=== PATIENT | male | born 1940 | race Hispanic/Latino ===

== ENCOUNTER 2018-04-12 17:43 | Inpatient (IN) | payer OTHER ==
[~2018-04-12] VITALS: Ht 172.7 cm; Wt 83.5 kg
[2018-04-12] MEDS ORDERED: ALBUTEROL SULF 0.083% NEB SOLN 3 ML NEB NEB STA (18:28)
[2018-04-12] MEDS ORDERED: IPRATROPIUM BROMIDE 0.02% 2.5 ML NEB NEB STA (18:28)
[2018-04-12 18:49] LABS: BASOPHILS % 0.2 % (0.0-1.0); HEMATOCRIT 45.5 % (38.2-49.6); HEMOGLOBIN 15.5 g/dL (14.0-18.0); MEAN CORPUSCULAR HEMOGLOBIN 29.4 pg (28-32); MEAN CORPUSCULAR HGB CONC 34.1 g/dL (31-35); MEAN CORPUSCULAR VOLUME 86.2 fL (81-99); MONOCYTES # (AUTO) 0.5 (0.2-0.8); MONOCYTES % 9.9 % (4.4-11.3); NEUTROPHILS # (AUTO) 2.9 (2.1-6.9); NEUTROPHILS % 53.7 % (38.7-80.0); PLATELET COUNT 137 x10e3/uL (140-360); RED BLOOD COUNT 5.28 x10e6/uL (4.3-5.7); RED CELL DISTRIBUTION WIDTH 13.8 % (11.7-14.4)
[2018-04-12 18:55] LABS: INR 0.8; PROTHROMBIN TIME 11.8 seconds (11.9-14.5)
[2018-04-12 18:56] LABS: PARTIAL THROMBOPLASTIN TIME 34.2 seconds (23.8-35.5)
[2018-04-12 19:04] LABS: ALANINE AMINOTRANSFERASE 24 IU/L (0-55); ALBUMIN 3.5 g/dL (3.5-5.0); ALBUMIN/GLOBULIN RATIO 0.9 (0.8-2.0); ALKALINE PHOSPHATASE 99 IU/L (40-150); ANION GAP 14.5 mmol/L (8-16); BLOOD UREA NITROGEN 20 mg/dL (7-26); BUN/CREATININE RATIO 22 (6-25); CARBON DIOXIDE 22 mmol/L (22-29); CHLORIDE 94 mmol/L (98-107); CREATINE KINASE 1143 IU/L (30-200); CREATININE, SERUM 0.91 mg/dL (0.72-1.25); EST GLOMERULAR FILTRATION RATE > 60 ML/MIN (60-); GLUCOSE 130 mg/dL (74-118); POTASSIUM 3.5 mmol/L (3.5-5.1); SODIUM 127 mmol/L (136-145)
--- NOTE | 2018-04-12 19:36 | Diagnostic Imaging Report ---
EXAMINATION: CHEST 2 VIEWS INDICATION: ^ORDER PLACED BY ^[id number] ^1900 ^Y COMPARISON: None FINDINGS: PA and lateral views TUBES and LINES: None. LUNGS: Lungs are well inflated. Diffuse bilateral upper and lower lobes reticular nodular opacities. Mild central pulmonary vascular congestion. PLEURA: No pleural effusion or pneumothorax. HEART AND MEDIASTINUM: Mild enlargement of the cardiac silhouette. Moderate calcifications of the aortic arch. BONES AND SOFT TISSUES: No acute osseous lesion. Soft tissues are unremarkable. UPPER ABDOMEN: No free air under the diaphragm. IMPRESSION: Bilateral upper lobes and lower lobes reticular nodular opacities may represent sequela of prior TB, cannot exclude active infection. No prior images are available for comparison. Mild cardiomegaly with associated central pulmonary vascular congestion. Signed by: Dr. Morena Ruiz M.D. on 04/12/2018 7:33 PM
[2018-04-12] MEDS ORDERED: CEFTRIAXONE SOD 1 GM VIAL IV SCH (20:00)
[2018-04-12] MEDS ORDERED: ALBUTEROL SULF 0.083% NEB SOLN 3 ML NEB NEB ONE (20:12)
[2018-04-12] MEDS ORDERED: METHYLPREDNISOLONE SOD SUCC 125 MG/2ML VIAL IV STA (20:13)
[2018-04-12] MEDS ORDERED: IPRATROPIUM BROMIDE 0.02% 2.5 ML NEB NEB ONE (20:15)
[2018-04-12 20:43] LABS: ABG PCO2 39 mmHg (41-51); ABG PH 7.37 (7.31-7.41)
[2018-04-12 20:44] LABS: ABG HCO3 23 mmol/L (23-28); ABG PO2 65 mmHg (80-105)
[2018-04-12] MEDS ORDERED: ONDANSETRON HCL INJ 2 MG/ML VIAL IV PRN (21:00)
--- NOTE | 2018-04-12 21:01 | NUR ---
PT/FAMILY UPDATED ON POC/ORDERS. ABX INFUSING WITH NO PROBLEM.
[2018-04-12] MEDS: CEFTRIAXONE SOD 1 GM/NS 50 ML 50 ML IV SCH (21:02)
--- OUTSIDE RECORDS SUMMARY | 2018-04-12 21:13 | XMS REPORT ---
Author [facility] Address Unknown Phone Unavailable Care Team Providers Care Wallet Assembler Name Role Phone DORETHAKESHAV Tere DAVIS Unavailable Unavailable Problems This patient has no known problems. Allergies, Adverse Reactions, Alerts This patient has no known allergies or adverse reactions. Medications This patient has no known medications. Results Test Description Test Time Test Comments Text Results Atomic Results Result Comments CHEST 2 VIEWS 2018-04-12 19:31:00 [place] [id number] Patient Name: LIBBY ALBA MR #: [id number] : 1940 Age/Sex: 77/M Req #: [id number] Adm Physician: Ordered by: JULEE ROBLES NP Report #: [id number] Location: ER Room/Bed: Procedure: [id number] DX/CHEST 2 VIEWS Exam Date: 04/12/18 Exam Time: 1899 REPORT STATUS: Signed EXAMINATION: CHEST 2 VIEWS INDICATION: ORDER PLACED BY [id number] 1899 Y COMPARISON: None FINDINGS: PA and lateral views TUBES and LINES: None. LUNGS: Lungs are well inflated. Diffuse bilateral upper and lower lobes reticular nodular opacities. Mild central pulmonary vascular congestion. PLEURA: No pleural effusion or pneumothorax. HEART AND MEDIASTINUM: Mild enlargement of the cardiac silhouette. Moderate calcifications of the aortic arch. BONES AND SOFT TISSUES: No acute osseous lesion. Soft tissues are unremarkable. UPPER ABDOMEN: No free air under the diaphragm. IMPRESSION: Bilateral upper lobes and lower lobes reticular nodular opacities may represent sequela of prior TB, cannot exclude active infection. No prior images are available for comparison. Mild cardiomegaly with associated central pulmonary vascular congestion. Signed by: Dr. Rubi Mon M.D. on 04/12/2018 7:33 PM Dictated By: RUBI MON MD 32 Transcribed By: KWAME on 04/12/181932 COPY TO: JULEE ROBLES NP
[2018-04-12] MEDS: METHYLPREDNISOLONE SOD SUCC 125 MG/2ML VIAL IV SCH (21:18)
[2018-04-12 21:27] LABS: BAND NEUTROPHILS % (MANUAL) 2 %; LYMPHOCYTES % (MANUAL) 35 % (19-48); MONOCYTES % (MANUAL) 13 % (3.4-9.0); NEUTROPHILS % (MANUAL) 47 % (40-74)
[2018-04-12 21:28] LABS: PLATELET ESTIMATE SLIGHTLY DECREASED; PLATELET MORPHOLOGY COMMENT NORMAL; RBC MORPHOLOGY COMMENT NORMAL
[2018-04-12] MEDS: AZITHROMYCIN 500MG/NS 250 ML 250 ML IV SCH (21:37)
--- NOTE | 2018-04-12 22:33 | NUR ---
TX'D TO A HOSPITAL BED
[2018-04-12] MEDS: ALBUTEROL SULF 0.083% NEB SOLN 3 ML NEB NEB SCH (23:00)
[2018-04-12] MEDS: IPRATROPIUM BROMIDE 0.02% 2.5 ML NEB NEB SCH (23:00)
--- NOTE | 2018-04-12 23:40 | NUR ---
REPORTED OFF TO LUCHO CHRISTOPHER RN FOR CONTINUITY OF CARE.
[2018-04-13 01:07] LABS: CLARITY,URINE CLEAR (CLEAR); COLOR,URINE YELLOW (YELLOW)
[2018-04-13 01:08] LABS: BILIRUBIN,URINE NEGATIVE (NEGATIVE); KETONES,URINE NEGATIVE (NEGATIVE); LEUKOCYTE ESTERASE ,URINE NEGATIVE (NEGATIVE); NITRITE,URINE NEGATIVE (NEGATIVE); PROTEIN,URINE DIPSTICK 2+ (NEGATIVE); URINE UROBILINOGEN 0.2 mg/dL (0.2 - 1)
[2018-04-13 01:09] LABS: BACTERIA,URINE RARE /HPF; EPITHELIAL CELLS,URINE FEW /LPF; RBC,URINE 0-5 /HPF (0-5); WBC,URINE (MAN) 0-5 /HPF (0-5)
[2018-04-13] MEDS ORDERED: SODIUM CHLORIDE 0.9% 500ML 500 ML ONE (01:12)
[2018-04-13] MEDS ORDERED: SODIUM CHLORIDE 0.9% 500ML 500 ML IV STA (01:27)
[2018-04-13] MEDS: SODIUM CHLORIDE 0.9% 1000ML 1,000 ML IV SCH ×2 (02:21→08:28)
[2018-04-13] MEDS: ALBUTEROL SULF 0.083% NEB SOLN 3 ML NEB NEB SCH ×6 (02:30→23:50)
[2018-04-13] MEDS: IPRATROPIUM BROMIDE 0.02% 2.5 ML NEB NEB SCH ×7 (02:30→23:50)
[2018-04-13 02:48] LABS: CREATINE KINASE MB 5.8 ng/mL (0-5.0)
[2018-04-13 04:48] LABS: BASOPHILS % 0.6 % (0.0-1.0); LYMPHOCYTES % 32.3 % (18.0-39.1); MEAN CORPUSCULAR HEMOGLOBIN 29.3 pg (28-32); MEAN CORPUSCULAR HGB CONC 33.3 g/dL (31-35); MEAN CORPUSCULAR VOLUME 87.9 fL (81-99); MONOCYTES # (AUTO) 0.1 (0.2-0.8); MONOCYTES % 2.5 % (4.4-11.3); NEUTROPHILS % 64.3 % (38.7-80.0); PLATELET COUNT 144 x10e3/uL (140-360); RED BLOOD COUNT 5.12 x10e6/uL (4.3-5.7); RED CELL DISTRIBUTION WIDTH 13.8 % (11.7-14.4)
[2018-04-13 05:04] LABS: ALANINE AMINOTRANSFERASE 24 IU/L (0-55); ALBUMIN 3.2 g/dL (3.5-5.0); ALBUMIN/GLOBULIN RATIO 0.8 (0.8-2.0); ALKALINE PHOSPHATASE 92 IU/L (40-150); ANION GAP 15.5 mmol/L (8-16); BLOOD UREA NITROGEN 19 mg/dL (7-26); BUN/CREATININE RATIO 21 (6-25); CALCIUM 8.8 mg/dL (8.4-10.2); CARBON DIOXIDE 22 mmol/L (22-29); CHLORIDE 99 mmol/L (98-107); CHOL/HDL RATIO 2.5 (3.9-4.7); CHOLESTEROL 125 MD/DL (0-199); CREATININE, SERUM 0.89 mg/dL (0.72-1.25); EST GLOMERULAR FILTRATION RATE > 60 ML/MIN (60-); GLUCOSE 174 mg/dL (74-118); HDL CHOLESTEROL 50 MG/DL (40-60); LDL CHOLESTEROL 61 MG/DL (60-130); POTASSIUM 3.5 mmol/L (3.5-5.1); SODIUM 133 mmol/L (136-145); TRIGLYCERIDES 70 MG/DL (0-149)
[2018-04-13] MEDS: METHYLPREDNISOLONE SOD SUCC 125 MG/2ML VIAL IV SCH ×3 (05:47→21:43)
[2018-04-13 06:11] LABS: BAND NEUTROPHILS % (MANUAL) 3 %; LYMPHOCYTES % (MANUAL) 27 % (19-48); MONOCYTES % (MANUAL) 3 % (3.4-9.0); NEUTROPHILS % (MANUAL) 67 % (40-74); PLATELET ESTIMATE ADEQUATE; PLATELET MORPHOLOGY COMMENT NORMAL; RBC MORPHOLOGY COMMENT NORMAL
[2018-04-13 06:42] LABS: CREATINE KINASE MB 6.1 ng/mL (0-5.0)
--- NOTE | 2018-04-13 06:59 | NUR ---
RECEIVED REPORT FROM KSENIA YEPEZ DESKTOP SPECIALIST NURSE.
--- NOTE | 2018-04-13 08:30 | NUR ---
MEAL GIVEN TO PT.
[2018-04-13] MEDS: ASPIRIN 81 MG ENTERIC COATED PO SCH (09:27)
[2018-04-13] MEDS: FAMOTIDINE 20 MG/2 ML VIAL IV SCH ×2 (09:29→21:03)
[2018-04-13] MEDS: CEFTRIAXONE SOD 1 GM/NS 50 ML 50 ML IV SCH ×2 (09:39→21:03)
[2018-04-13] MEDS: AZITHROMYCIN 500MG/NS 250 ML 250 ML IV SCH (10:45)
[2018-04-13] MEDS ORDERED: HYDRALAZINE HCL 20 MG/ML VIAL IV NR (11:00)
[2018-04-13] MEDS ORDERED: HYDRALAZINE HCL 20 MG/ML VIAL ONE (11:05)
[2018-04-13 11:39] LABS: CREATINE KINASE MB 5.8 ng/mL (0-5.0)
[2018-04-13 12:00] LABS: BILIRUBIN,DIRECT 0.2 mg/dL (0.0-0.5)
--- NOTE | 2018-04-13 12:15 | NUR ---
LUNCH TRAY GIVEN TO PT.
--- NOTE | 2018-04-13 12:27 | History and Physical ---
CHIEF COMPLAINT: Shortness of breath. HISTORY OF PRESENT ILLNESS: Mr. Jackson is a 77-year-old male who presented to the emergency room with worsening shortness of breath, wheezing, and cough. His usual care is in [place]. He has been a smoker for 50+ years and he smokes a pack a day for almost 50+ years. He denies any chest pain. He reports that he has history of hypertension. He does not have any heart disease. He takes losartan at home. He denies any complaints of chest pain, nausea, or vomiting. REVIEW OF SYSTEMS GENERAL: Denies any fever or chills. HEAD: Denies any trauma. ENT: Denies any earaches. CVS: Denies any chest pain. RESPIRATORY: Shortness of breath. The rest of the review of systems are negative except as in HPI. PAST MEDICAL HISTORY: Hypertension and hyperlipidemia. PAST SURGICAL HISTORY: Hernia repair. FAMILY AND SOCIAL HISTORY: Smoker for 50+ years. All his care is in [place]. PHYSICAL EXAMINATION VITAL SIGNS: Temperature 97.5, pulse of 70, blood pressure 162/59, respiratory rate of 18. HEENT: Head atraumatic, normocephalic. NECK: Supple. CHEST: Wheezing bilaterally. HEART: S1, S2 audible. ABDOMEN: Soft, nontender, nondistended. EXTREMITIES: No clubbing, cyanosis. Trace edema. NEUROLOGIC: Awake and alert. LABS: White count of 3000, hemoglobin 15.0, and platelets 144. Chemistry; sodium 133, potassium 3.5, chloride 99, BUN 19, creatinine 0.89. Troponin has been negative. CK-MB was 6.10. Alk phos is 964 and AST 42. BNP 81.5. Chest x-ray showing increased bronchovascular marking, possible reticulonodular opacities. ASSESSMENT: Mr. Jackson is a 77-year-old male who presented with worsening shortness of breath, wheezing, and cough. He has a history of hypertension, smoker for 50+ years. CURRENT PROBLEMS 1. Acute exacerbation of chronic obstructive pulmonary disease versus pneumonia. 2. Abnormal CK-MB; however, the troponin is negative, unsure if it is the muscular injury versus cardiac. 3. Abnormal alkaline phosphatase. 4. History of hypertension, currently uncontrolled. PLAN 1. I will start the patient on Solu-Medrol nebulizer treatment as ordered. 2. Agree with IV antibiotics, ceftriaxone and azithromycin. 3. We will do a CT of the chest without contrast to further evaluate the abnormal chest x-ray. 4. Ultrasound of the right upper quadrant as patient's alkaline phosphatase is evaluated. 5. Abnormal CK-MB and CPK. We will follow closely. If this continues to go up, then consider cardiology evaluation. 6. Uncontrolled hypertension. Resume the home medications. 7. Check labs in a.m. Discussed with patient's at bedside in detail. Job#: [id number] ADIEL
--- NOTE | 2018-04-13 12:47 | Diagnostic Imaging Report ---
EXAM: CT Chest WITHOUT contrast INDICATION: ^ABNORMAL CXR stated findings suggestive of sequela of prior TB. COMPARISON: Chest x-ray 04/12/2018. TECHNIQUE: Chest was scanned utilizing a multidetector helical scanner from the lung apex through the level of the adrenal glands without administration of IV contrast. Absence of intravenous contrast decreases sensitivity for detection of lymphadenopathy and vascular pathology. Coronal and sagittal reformations were obtained. Routine protocol was performed. IV CONTRAST: None COMPLICATIONS: None RADIATION DOSE: Total DLP: 544.13 mGy*cm Estimated effective dose: (DLP x 0.014 x size factor) mSv CTDIvol has been reviewed. It is below the limits set by the Radiation Protocol Committee (RPC). FINDINGS: LINES/ TUBES: None. LUNGS AND AIRWAYS: Bilateral pleural parenchymal scarring predominantly in the upper lobes. There are cavitary lesions predominantly in the upper lobes. Scattered nodular densities in throughout bilateral lungs predominantly in the upper lobes. For example, 1.1 cm in the left upper lobe (series 3, image 51). 0.9 cm nodule in the right middle lobe (series 3, image 80). Mild bronchial wall thickening. PLEURA: The pleural spaces are clear. HEART AND MEDIASTINUM: The thyroid gland is normal. Lymph nodes are measured on series 2. * 1.1 cm right supraclavicular lymph node (image 9). * 1.2 cm low paratracheal lymph node (image 34). * 1.0 cm prevascular lymph node (image 46). * 1.6 cm subcarinal lymph node (image 51). The heart is normal in size. There is no pericardial effusion. There are significant atherosclerotic calcifications in the aorta and coronary arteries. Main pulmonary artery measures 3.6 cm and ascending aorta measures 4.0 cm. UPPER ABDOMEN: Unremarkable. BONES: The visualized bony thorax is within normal limits. SOFT TISSUES: Unremarkable. IMPRESSION: Findings consistent with old granulomatous disease especially prior TB. There is however still significant nodular component without significant calcifications. This raises concern for residual active disease. Signed by: Dr. Sohail Anthony M.D. on 04/13/2018 12:43 PM
[2018-04-13] MEDS: LEVALBUTEROL HCL SOLN NEBU 1.25 MG/3 ML NEB INH SCH ×2 (13:00→19:20)
[2018-04-13] MEDS: LOSARTAN POTASSIUM 100 MG TAB PO SCH (13:28)
[2018-04-13] MEDS ORDERED: HYDRALAZINE HCL 20 MG/ML VIAL IV ONE (17:30)
--- NOTE | 2018-04-13 19:13 | NUR ---
REPORT GIVEN TO KSENIA YEPEZ CANCER CENTER DIRECTOR NURSE.
[2018-04-13] MEDS: HYDRALAZINE HCL 25 MG TAB PO SCH ×2 (19:15→23:22)
[2018-04-14] MEDS: HYDRALAZINE HCL 20 MG/ML VIAL IV PRN ×2 (00:12→15:40)
[2018-04-14] MEDS: IPRATROPIUM BROMIDE 0.02% 2.5 ML NEB NEB SCH ×6 (00:15→18:55)
[2018-04-14] MEDS: ALBUTEROL SULF 0.083% NEB SOLN 3 ML NEB NEB SCH ×6 (00:15→18:55)
[2018-04-14] MEDS ORDERED: HYDROCODONE/CHLORPHENIRAMINE 5 ML LIQCR PO ONE (01:00)
[2018-04-14] MEDS: LEVALBUTEROL HCL SOLN NEBU 1.25 MG/3 ML NEB INH SCH ×4 (01:00→19:00)
[2018-04-14] MEDS ORDERED: METHYLPREDNISOLONE SOD SUCC 40 MG/ML VIAL ONE (06:00)
[2018-04-14] MEDS: METHYLPREDNISOLONE SOD SUCC 125 MG/2ML VIAL IV SCH (06:03)
[2018-04-14] MEDS: HYDRALAZINE HCL 25 MG TAB PO SCH ×3 (06:05→18:24)
[2018-04-14 06:42] LABS: BASOPHILS % 0.2 % (0.0-1.0); HEMATOCRIT 41.3 % (38.2-49.6); LYMPHOCYTES % 11.6 % (18.0-39.1); MEAN CORPUSCULAR HGB CONC 33.9 g/dL (31-35); MEAN CORPUSCULAR VOLUME 85.7 fL (81-99); MONOCYTES # (AUTO) 0.2 (0.2-0.8); MONOCYTES % 2.7 % (4.4-11.3); NEUTROPHILS # (AUTO) 7.5 (2.1-6.9); NEUTROPHILS % 85.2 % (38.7-80.0); PLATELET COUNT 161 x10e3/uL (140-360); RED BLOOD COUNT 4.82 x10e6/uL (4.3-5.7); RED CELL DISTRIBUTION WIDTH 13.8 % (11.7-14.4)
[2018-04-14 07:02] LABS: ANION GAP 13.3 mmol/L (8-16); BLOOD UREA NITROGEN 16 mg/dL (7-26); BUN/CREATININE RATIO 21 (6-25); CALCIUM 8.8 mg/dL (8.4-10.2); CARBON DIOXIDE 21 mmol/L (22-29); CHLORIDE 103 mmol/L (98-107); CREATININE, SERUM 0.78 mg/dL (0.72-1.25); EST GLOMERULAR FILTRATION RATE > 60 ML/MIN (60-); GLUCOSE 317 mg/dL (74-118); POTASSIUM 3.3 mmol/L (3.5-5.1); SODIUM 134 mmol/L (136-145)
[2018-04-14 07:38] LABS: BAND NEUTROPHILS % (MANUAL) 1 %; LYMPHOCYTES % (MANUAL) 11 % (19-48); MONOCYTES % (MANUAL) 1 % (3.4-9.0); NEUTROPHILS % (MANUAL) 87 % (40-74)
[2018-04-14 07:39] LABS: PLATELET ESTIMATE ADEQUATE; PLATELET MORPHOLOGY COMMENT NORMAL; RBC MORPHOLOGY COMMENT NORMAL
--- NOTE | 2018-04-14 07:43 | Progress Note ---
DATE: April 14, 2018 CARDIOLOGY PROGRESS NOTE SUBJECTIVE: No major events overnight. OBJECTIVE VITAL SIGNS: Temperature afebrile, pulse 71, respiratory rate 17, blood pressure 133/52, satting 95% on nasal cannula. GENERAL: Elderly man, no acute distress. CARDIOVASCULAR: Difficult exam due to barrel chest. Regular rate and rhythm. No murmurs, rubs, or gallops. Palpable carotid pulses. Palpable radial pulses. No jugular venous distention. LUNGS: Lungs with poor air movement. Mild expiratory wheezing. ABDOMEN: Soft, nontender, nondistended. NEURO AND PSYCH: Alert and oriented to person, place, and time. Normal affect. INPATIENT MEDICATIONS: Reviewed. LABORATORY DATA: Reviewed. IMAGING DATA: Reviewed. Chest CT shows old granulomatous disease; however, there are a few nodules that are concerning for active infection. No pulmonary edema. No other concerning cardiovascular findings. Telemetry data reviewed, shows sinus rhythm. ASSESSMENT AND PLAN 1. Abnormal cardiac biomarkers. 2. Chronic obstructive pulmonary disease exacerbation. 3. Hypertension. PLAN: Continue current cardiovascular medications. Increase hydralazine to 50 mg q.6 hours for better blood pressure control. Pulmonary issues per primary team. Echocardiogram is pending. Thank you for this consult. We will continue to follow. Job#: [id number] JULIUS
[2018-04-14] MEDS: FAMOTIDINE 20 MG/2 ML VIAL IV SCH ×2 (09:23→21:40)
[2018-04-14] MEDS: CEFTRIAXONE SOD 1 GM/NS 50 ML 50 ML IV SCH ×2 (09:23→21:40)
[2018-04-14] MEDS: AMLODIPINE BESYLATE 10 MG TAB PO SCH (09:26)
[2018-04-14] MEDS: LOSARTAN POTASSIUM 100 MG TAB PO SCH (09:26)
[2018-04-14] MEDS: ASPIRIN 81 MG ENTERIC COATED PO SCH (09:26)
[2018-04-14] MEDS: AZITHROMYCIN 500MG/NS 250 ML 250 ML IV SCH (11:13)
[2018-04-14] MEDS: METHYLPREDNISOLONE SOD SUCC 40 MG/ML VIAL IV SCH ×2 (14:14→21:40)
--- NOTE | 2018-04-14 19:29 | NUR ---
REPORT GIVEN TO KSENIA CISNEROSRETAIL TIRE SALES MANAGERCOMPENSATION CONSULTING MANAGER NURSE.
[2018-04-15] MEDS: HYDRALAZINE HCL 25 MG TAB PO SCH ×5 (00:14→21:06)
[2018-04-15] MEDS: LEVALBUTEROL HCL SOLN NEBU 1.25 MG/3 ML NEB INH SCH ×3 (01:00→10:10)
[2018-04-15] MEDS: ALBUTEROL SULF 0.083% NEB SOLN 3 ML NEB NEB SCH ×2 (03:00→07:00)
[2018-04-15] MEDS: IPRATROPIUM BROMIDE 0.02% 2.5 ML NEB NEB SCH ×4 (03:00→14:19)
[2018-04-15] MEDS: METHYLPREDNISOLONE SOD SUCC 40 MG/ML VIAL IV SCH ×2 (06:11→16:29)
--- NOTE | 2018-04-15 07:00 | NUR ---
PATIENT RECEIVING BREATHING TX
--- NOTE | 2018-04-15 07:01 | NUR ---
REPORT TO GINETTE LU
[2018-04-15] MEDS: HYDRALAZINE HCL 20 MG/ML VIAL IV PRN ×2 (07:28→18:29)
[2018-04-15] MEDS: FAMOTIDINE 20 MG/2 ML VIAL IV SCH (08:39)
[2018-04-15] MEDS: CEFTRIAXONE SOD 1 GM/NS 50 ML 50 ML IV SCH ×2 (08:39→20:32)
[2018-04-15] MEDS: AMLODIPINE BESYLATE 10 MG TAB PO SCH (08:39)
[2018-04-15] MEDS: LOSARTAN POTASSIUM 100 MG TAB PO SCH (08:39)
[2018-04-15] MEDS: ASPIRIN 81 MG ENTERIC COATED PO SCH (08:39)
[2018-04-15] MEDS: AZITHROMYCIN 500MG/NS 250 ML 250 ML IV SCH (09:19)
[2018-04-15] MEDS ORDERED: DEXTROSE 50% SYRINGE 50 ML IV PRN (09:30)
--- NOTE | 2018-04-15 09:31 | NUR ---
DR. CABEZAS IN ER. SPEAKING WITH FAMILY REGARDING BRONCOSCOPY AND NEEDING SPUTUM SAMPLE ALSO FAMILY DOES NOT KNOW NAME OF MEDS HE IS ON. HE TAKES SOMETHING FOR PAIN AND BP
--- NOTE | 2018-04-15 10:25 | Diagnostic Imaging Report ---
PROCEDURE:LIMITED ABDOMINAL ULTRASOUND COMPARISON:None. INDICATIONS:ABNORMAL LFTS FINDINGS: Liver: Measures 12.2 cm. Normal hepatic parenchymal echogenicity. No focal mass. Main portal vein: Measures 0.8 cm with normal hepatopetal flow. Gallbladder: Multiple shadowing stones within the gallbladder. No wall thickening. Common Bile Duct: Measures 0.2 cm with no echogenic filling defect. Sonographic Gay's sign: Negative Right kidney: Measures 10.7 x 5.2 x 6.0 cm. No solid or cystic mass, echogenic calculi, or hydronephrosis. Normal parenchymal echogenicity. Pancreas: Obscured by gas Inferior vena cava: Patent Aorta: Proximal portion and is normal in size Ascites: None. CONCLUSION: Multiple shadowing gallstones. Emory Gleason D.O. Dictated by: Emory Gleason D.O. on 04/15/2018 at 10:26 Electronically approved by: Emory Gleason D.O. on 04/15/2018 at 10:35
--- NOTE | 2018-04-15 11:49 | NUR ---
PATIENT REFUSING BROCHOSCOPY. DR. CABEZAS NOTIFIED VIA ANSWERING SERVICE
--- NOTE | 2018-04-15 12:15 | NUR ---
PT HAS ALREADY EATEN LUNCH. INFORMED FAMILY TO NOTIFY RN BEFORE PATIENT EATS NEXT MEAL FSBS CHECK IS NEEDED. FAMILY AND PATIENT VERBALIZED UNDERSTANDING.
--- NOTE | 2018-04-15 12:22 | NUR ---
REPORT TO ARELY
[2018-04-15] MEDS: AZITHROMYCIN 250 MG TAB PO SCH (12:54)
--- NOTE | 2018-04-15 12:56 | NUR ---
CHLORTHALIDONE NOT IN [place], PHARMACY NOTIFIED. THEY WILL BRING TO ED.
[2018-04-15] MEDS: CHLORTHALIDONE 25 MG TAB PO SCH (13:29)
--- NOTE | 2018-04-15 14:53 | Progress Note ---
DATE: April 15, 2018 CARDIOLOGY PROGRESS NOTE SUBJECTIVE: Patient feels better. Denies any chest pain or chest pressure. Improvement in shortness of breath. OBJECTIVE VITAL SIGNS: The patient is afebrile, heart rate is 70, respirations are 20, blood pressure is 166/91, oxygen saturation is 99% on room air. GENERAL: A well-appearing elderly man seated at bedside in no apparent distress. CARDIOVASCULAR: Regular rate and rhythm. Mild systolic murmur heard best at the left lower sternal order. LUNGS: Mild expiratory wheezing. ABDOMEN: Soft, nontender and nondistended. CARDIOVASCULAR MEDICATIONS: Reviewed. LABORATORY DATA: Reviewed. Creatinine kinase is 827 down from 1143. CK-MB is 5.8. Troponin I is 0.022, 0.014. Creatinine is 0.78. Potassium is 3.3. IMPRESSION 1. Abnormal cardiac biomarkers. 2. Chronic obstructive pulmonary disease. 3. Granulomatous disease. 4. Hypertension. RECOMMENDATIONS: Continue current cardiovascular medications. Increase hydralazine to 100 t.i.d. for better blood pressure control. Cardiac enzymes not consistent with acute coronary syndrome, and the patient has no chest discomfort or chest pain. Troponins remain negative. Echocardiogram pending. Job#: [id number] KEISHA
[2018-04-15] MEDS: INSULIN LISPRO 100 UNIT/1 ML 3ML VIAL SQ SCH ×3 (16:28→21:00)
--- NOTE | 2018-04-15 17:55 | NUR ---
DINNER TRAY HAS NOT ARRIVED. RECHECKED FSBS, RESULT 218, NO SYMPTOMS
--- NOTE | 2018-04-15 19:11 | NUR ---
REPORT AND PATIENT CARE ENDORSED TO IVETTE MCCORMACK
--- NOTE | 2018-04-15 20:38 | NUR ---
REPORT CALLED TO JOCELIN RN, ROOM 201.
[2018-04-15 21:00] VITALS: BP 159/75
[2018-04-15] MEDS: TERAZOSIN HCL 1 MG CAP PO SCH (21:06)
[2018-04-15 22:00] VITALS: BP 159/75
[2018-04-16] VITALS: BP 141/65
[2018-04-16] MEDS ORDERED: LOSARTAN POTASS25 MG PO (00:24)
[2018-04-16 04:00] VITALS: BP 167/75
--- NOTE | 2018-04-16 07:40 | NUR ---
patient endorsed to next shift for continuity of care.
[2018-04-16] MEDS: INSULIN LISPRO 100 UNIT/1 ML 3ML VIAL SQ SCH ×4 (08:00→21:35)
[2018-04-16 08:14] VITALS: BP 199/86
[2018-04-16] MEDS: HYDRALAZINE HCL 25 MG TAB PO SCH ×3 (09:29→21:27)
[2018-04-16] MEDS: CEFTRIAXONE SOD 1 GM/NS 50 ML 50 ML IV SCH ×2 (09:29→21:27)
[2018-04-16] MEDS: METHYLPREDNISOLONE SOD SUCC 40 MG/ML VIAL IV SCH (09:29)
[2018-04-16] MEDS: ASPIRIN 81 MG ENTERIC COATED PO SCH (09:30)
[2018-04-16] MEDS: LOSARTAN POTASSIUM 100 MG TAB PO SCH (09:30)
[2018-04-16] MEDS: AMLODIPINE BESYLATE 10 MG TAB PO SCH (09:30)
[2018-04-16] MEDS: CHLORTHALIDONE 25 MG TAB PO SCH (09:30)
[2018-04-16] MEDS: AZITHROMYCIN 250 MG TAB PO SCH (09:30)
[2018-04-16 11:59] VITALS: BP 197/84
[2018-04-16] MEDS: HYDRALAZINE HCL 20 MG/ML VIAL IV PRN (12:29)
--- NOTE | 2018-04-16 12:29 | NUR ---
Seating Captain to bedside to discuss plan of care with patient/family. CM/SW role and care transitions discussed. Anticipated discharge plan discussed along with duration of care. CM/SW discussed patients right to make decisions in care. CM/SW work hours given. Patient lives: with and son King Jackson Admit/Transfer: thru ED, from home POA/Emergency contact: daughter Patricia Alex [phone] Current/Previous Home Health: none PCP/Follow-up Care: roque Current/Previous DME: none; pt reports he is independent Other Services: none Employment Status: unemployed Areas of Concerns: n/a Referral Needs: n/a Education Needs: medical management IMM/LUCAS given and signed (if applicable): n/a Goal for discharge: home, son will provide transportation CM/SW left business card at the bedside with contact information. Name and number was also written on the patients whiteboard. Patient verbalized understanding of discussion. CM will follow-up with ongoing discharge and transition of care needs.
[2018-04-16] MEDS ORDERED: DOXAZOSIN MESYLATE 2 MG TAB PO SCH (14:00)
--- NOTE | 2018-04-16 14:15 | Progress Note ---
DATE: CARDIOLOGY PROGRESS NOTE SUBJECTIVE: Patient feels better and denies any chest pain. OBJECTIVE: VITAL SIGNS: Temperature is 96.5, heart rate is 63, respirations are 16, blood pressure is 197/84, oxygen saturation 96% on room air. GENERAL: He is an elderly man seated at bedside. HEAD: Normocephalic, atraumatic. LUNGS: Diminished breath sounds with scattered wheezes. CARDIOVASCULAR: Regular rate and rhythm. ABDOMEN: Soft, nontender. EXTREMITIES: No edema. Cardiovascular medications reviewed. LABORATORY DATA: Reviewed. Telemetry monitoring revealed normal sinus rhythm. IMPRESSION: 1. Hypertension. 2. Abnormal cardiac biomarkers. 3. Chronic obstructive pulmonary disease. 4. Granulomatous disease. PLAN: Continue all current cardiovascular medications. Will start Cardura at 4 mg for better blood pressure control. Echocardiogram showed normal left ventricular systolic function. There is no acute evidence of acute coronary syndrome, and his troponin remains within normal limits. Continue all other pulmonary treatment per primary team. Job#: [id number] FRANDY
[2018-04-16] MEDS ORDERED: POTASSIUM CHLORIDE 20 MEQ TAB CR PO PRN (15:30)
[2018-04-16] MEDS: NIFEDIPINE CR 30 MG TAB PO SCH ×2 (15:35→21:28)
[2018-04-16 16:08] VITALS: BP 173/76
--- NOTE | 2018-04-16 19:15 | NUR ---
PATIENT RECEIVED. PATIENT RESTING IN BED, AA0X3. RESP EVEN AND UNLABORED. NO ACUTE DISTRESS NOTED AT THIS TIME. CALL LIGHT WITHIN REACH. INSTRUCT TO CALL FOR ASSISTANCE. BED LOW/LOCKED. CONTINUE TO MONITOR CLOSELY
[2018-04-16 20:00] VITALS: BP_SYST 151; BP_SYST 159; BP_SYST 179; BP_DIAS 70; BP_DIAS 74; BP_DIAS 79
[2018-04-16] MEDS: TERAZOSIN HCL 1 MG CAP PO SCH (21:28)
[2018-04-16] MEDS ORDERED: SODIUM CHLORIDE 0.9% 250ML 250 ML ONE (21:40)
[2018-04-16] MEDS: IPRATROPIUM BROMIDE 0.02% 2.5 ML NEB NEB SCH (23:15)
[2018-04-16] MEDS: LEVALBUTEROL HCL SOLN NEBU 1.25 MG/3 ML NEB INH SCH (23:15)
[2018-04-17] VITALS (8 sets, daily range): BP systolic 120–154; BP diastolic 57–74
[2018-04-17 04:52] LABS: LYMPHOCYTES # (AUTO) 2.4 (1.0-3.2); LYMPHOCYTES % 33.7 % (18.0-39.1); MEAN CORPUSCULAR HEMOGLOBIN 29.4 pg (28-32); MEAN CORPUSCULAR HGB CONC 34.1 g/dL (31-35); MONOCYTES # (AUTO) 0.8 (0.2-0.8); NEUTROPHILS # (AUTO) 3.8 (2.1-6.9); NEUTROPHILS % 54.9 % (38.7-80.0); PLATELET COUNT 178 x10e3/uL (140-360); RED BLOOD COUNT 4.77 x10e6/uL (4.3-5.7); RED CELL DISTRIBUTION WIDTH 13.6 % (11.7-14.4)
[2018-04-17 05:13] LABS: BLOOD UREA NITROGEN 35 mg/dL (7-26); BUN/CREATININE RATIO 36 (6-25); CALCIUM 8.7 mg/dL (8.4-10.2); CARBON DIOXIDE 25 mmol/L (22-29); CHLORIDE 96 mmol/L (98-107); CREATININE, SERUM 0.97 mg/dL (0.72-1.25); EST GLOMERULAR FILTRATION RATE > 60 ML/MIN (60-); GLUCOSE 157 mg/dL (74-118); SODIUM 132 mmol/L (136-145)
[2018-04-17] MEDS: IPRATROPIUM BROMIDE 0.02% 2.5 ML NEB NEB SCH ×5 (07:20→23:35)
[2018-04-17] MEDS: LEVALBUTEROL HCL SOLN NEBU 1.25 MG/3 ML NEB INH SCH ×3 (07:20→19:55)
--- NOTE | 2018-04-17 07:51 | NUR ---
RECEIVED PATIENT SITTING ON A CHAIR. ALERT AND ORIENTED.
[2018-04-17] MEDS: INSULIN LISPRO 100 UNIT/1 ML 3ML VIAL SQ SCH ×4 (08:07→21:00)
--- NOTE | 2018-04-17 08:13 | NUR ---
PAGED DR ANDERSON AND NOTIFIED THE POTASSIUM LEVEL GOT NEW ORDERS
[2018-04-17] MEDS: CEFTRIAXONE SOD 1 GM/NS 50 ML 50 ML IV SCH ×2 (08:23→21:00)
[2018-04-17] MEDS ORDERED: POTASSIUM CHLORIDE 20 MEQ TAB CR PO NR (08:23)
[2018-04-17] MEDS: ASPIRIN 81 MG ENTERIC COATED PO SCH (08:43)
[2018-04-17] MEDS: AZITHROMYCIN 250 MG TAB PO SCH (08:43)
[2018-04-17] MEDS: LOSARTAN POTASSIUM 100 MG TAB PO SCH (08:43)
[2018-04-17] MEDS: CHLORTHALIDONE 25 MG TAB PO SCH (08:43)
[2018-04-17] MEDS: HYDRALAZINE HCL 25 MG TAB PO SCH ×3 (08:43→21:29)
[2018-04-17] MEDS ORDERED: PREDNISONE 20 MG TAB PO SCH (09:00)
--- NOTE | 2018-04-17 18:42 | NUR ---
PATIENT IN BED. REPORT GIVEN TO ONGOING NURSE.
[2018-04-17] MEDS: TERAZOSIN HCL 1 MG CAP PO SCH (21:29)
[2018-04-17] MEDS: NIFEDIPINE CR 30 MG TAB PO SCH (21:30)
[2018-04-18 00:27] VITALS: BP 115/57
[2018-04-18] MEDS: IPRATROPIUM BROMIDE 0.02% 2.5 ML NEB NEB SCH ×4 (03:25→15:15)
[2018-04-18] MEDS: LEVALBUTEROL HCL SOLN NEBU 1.25 MG/3 ML NEB INH SCH ×3 (03:25→15:15)
[2018-04-18 04:50] LABS: BASOPHILS % 0.2 % (0.0-1.0); EOSINOPHILS % 0.2 % (0.0-6.0); HEMATOCRIT 41.8 % (38.2-49.6); HEMOGLOBIN 14.1 g/dL (14.0-18.0); LYMPHOCYTES # (AUTO) 2.5 (1.0-3.2); LYMPHOCYTES % 37.3 % (18.0-39.1); MEAN CORPUSCULAR HEMOGLOBIN 29.1 pg (28-32); MEAN CORPUSCULAR HGB CONC 33.7 g/dL (31-35); MEAN CORPUSCULAR VOLUME 86.2 fL (81-99); MONOCYTES # (AUTO) 0.7 (0.2-0.8); MONOCYTES % 10.9 % (4.4-11.3); NEUTROPHILS # (AUTO) 3.4 (2.1-6.9); NEUTROPHILS % 50.8 % (38.7-80.0); PLATELET COUNT 192 x10e3/uL (140-360); RED BLOOD COUNT 4.85 x10e6/uL (4.3-5.7); RED CELL DISTRIBUTION WIDTH 13.7 % (11.7-14.4)
[2018-04-18 05:14] LABS: ANION GAP 15.5 mmol/L (8-16); BLOOD UREA NITROGEN 35 mg/dL (7-26); BUN/CREATININE RATIO 36 (6-25); CALCIUM 8.9 mg/dL (8.4-10.2); CARBON DIOXIDE 24 mmol/L (22-29); CHLORIDE 96 mmol/L (98-107); CREATININE, SERUM 0.98 mg/dL (0.72-1.25); EST GLOMERULAR FILTRATION RATE > 60 ML/MIN (60-); GLUCOSE 172 mg/dL (74-118); POTASSIUM 3.5 mmol/L (3.5-5.1); SODIUM 132 mmol/L (136-145)
[2018-04-18 05:25] VITALS: BP 123/58
--- NOTE | 2018-04-18 07:10 | NUR ---
RCD PT AT BED PT IS ALERT AND ORIENTED PT RESTING ON BED NO SIGNS OF ANY DISTRESS NOTED IV PATENT BED LOW AND LOCKED CALL LIGHT IN REACH
[2018-04-18] MEDS: INSULIN LISPRO 100 UNIT/1 ML 3ML VIAL SQ SCH ×3 (07:30→16:30)
[2018-04-18 07:40] VITALS: BP 123/58
[2018-04-18 08:00] VITALS: BP 172/77
[2018-04-18] MEDS: CEFTRIAXONE SOD 1 GM/NS 50 ML 50 ML IV SCH (08:15)
[2018-04-18] MEDS: LOSARTAN POTASSIUM 100 MG TAB PO SCH (09:00)
[2018-04-18] MEDS: AZITHROMYCIN 250 MG TAB PO SCH (09:00)
[2018-04-18] MEDS: ASPIRIN 81 MG ENTERIC COATED PO SCH (09:00)
[2018-04-18] MEDS ORDERED: CHLORTHALIDONE 25 MG TAB PO SCH (09:00)
[2018-04-18] MEDS ORDERED: POTASSIUM CHLORIDE 20 MEQ TAB CR PO SCH (09:00)
[2018-04-18] MEDS: HYDRALAZINE HCL 25 MG TAB PO SCH ×2 (09:00→15:00)
[2018-04-18 12:00] VITALS: BP 155/74
[2018-04-18] MEDS ORDERED: ASPIRIN EC81 MG PO (15:31)
[2018-04-18] MEDS ORDERED: TERAZOSIN HCL1 MG PO ×2 (15:31→17:55)
[2018-04-18] MEDS ORDERED: CHLORTHALIDONE25 MG PO ×2 (15:31→18:02)
[2018-04-18] MEDS ORDERED: HYDRALAZINE HCL25 MG PO ×2 (15:31→18:00)
[2018-04-18] MEDS ORDERED: NIFEDIPINE ER30 M1 PO ×2 (15:31→17:58)
[2018-04-18] MEDS ORDERED: KLOR-CON M2020 MEQ PO ×2 (15:31→18:03)
[2018-04-18] MEDS ORDERED: COZAAR100 MG PO (15:31)
[2018-04-18] MEDS ORDERED: VENTOLIN HFA18 GM INH (15:43)
[2018-04-18] MEDS ORDERED: ALBUTEROL SULFATE HFA 8GM INHALATION AEROSOL INH PRN (15:45)
[2018-04-18 16:25] VITALS: BP 167/79
--- NOTE | 2018-04-18 16:33 | Discharge Summary ---
Patient of Dr. Vang. Admitted to Dr. Robbins. Seen by consult by Dr. Rodríguez and Dr. Vannessa Painting. A charming 77-year-old gentleman, presented with shortness of breath and wheezing. He was smoking for over 50 years. History of hypertension, on losartan. History of TB, treated in [place] with DOT. Was admitted with acute exacerbation of COPD. CPK and CPK-MB were elevated, consistent with troponin leak. Blood pressure was difficult to control in the hospital. He was seen by Dr. Doc Rodríguez, cardiology, and Dr. Painting, cardiology. Was felt to be a troponin leak, not myocardial infarction. Echocardiogram reveals left ventricular hypertrophy, diastolic impairment. He was treated with Zithromax and Rocephin and gradually improved. Blood sugar was elevated. This was felt to be secondary to steroids. Was treated with sliding scale insulin. He will be followed by Dr. Vang and Dr. Rodríguez on discharge. Continue aspirin 81 mg a day, chlorthalidone 12.5 mg a day, potassium chloride 20 mEq a day, Apresoline 100 mg t.i.d., losartan 100 mg a day, nifedipine 30 mg a day, potassium 20 mEq, terazosin 1 mg at bedtime. Will also order a metered-dose inhaler, Ventolin. He was felt to have mild rhabdomyolysis. He was treated for active pneumonia. AFB smears were negative. He does have residual cavitary disease. Cultures are pending. There was no evidence of lactic acidosis. Blood cultures were negative. Thank you for this kind referral. ROBBIE CABEZAS MD Job#: [id number] TA
--- NOTE | 2018-04-18 16:51 | Progress Note ---
DATE: CARDIOLOGY PROGRESS NOTE SUBJECTIVE: Patient feels well, denies any shortness of breath or chest pain. OBJECTIVE VITAL SIGNS: Temperature is 97.3, heart rate is 88, respirations are 20, blood pressure 167/79, oxygen saturation 98% room air. GENERAL: Well-appearing. CARDIOVASCULAR: Regular rate and rhythm. LUNGS: Scattered wheezes and rhonchi. ABDOMEN: Soft, nontender. EXTREMITIES: No edema. VASCULAR: 2+ pulses. MEDICATIONS: Reviewed. LABORATORY DATA: Reviewed. TELEMETRY MONITORING: Revealed normal sinus rhythm. IMPRESSIONS 1. Hypertension. 2. Abnormal cardiac biomarkers. 3. Chronic obstructive pulmonary disease. 4. Granulomatous disease. RECOMMENDATIONS: Continue current cardiovascular medications. Increase nifedipine to 90 mg daily for better blood pressure control. Echocardiogram showed normal left ventricular systolic function. Cardiac enzymes not consistent with acute coronary syndrome and his troponin remains within normal limits. Continue all other treatments per primary team. Patient to follow up as an outpatient. Job#: [id number]
[2018-04-18] MEDS ORDERED: VENTOLIN HFA18 GM PO (17:56)
[2018-04-18] MEDS ORDERED: LOSARTAN POTAS100 MG PO (18:00)
[2018-04-18] MEDS ORDERED: ASPIRIN81 MG PO (18:01)
--- NOTE | 2018-04-18 18:24 | NUR ---
PT WENT HOME IN SAFE CONDITION WITH HIS DAUGHTER
== END 2018-04-18 18:23 | disposition home or self-care (01) | DRG 871 ==
LOC: ER 17:43 → ERHOLD 21:09 → MED/SURG2 04-15 20:48
PROVIDERS: ADMIT Internal Medicine; ATTEND Internal Medicine
DX: A41.9 Sepsis, unspecified organism (principal); G93.41 Metabolic encephalopathy; J18.9 Pneumonia, unspecified organism; J44.0 Chronic obstructive pulmonary disease with (acute) lower respiratory infection; M62.82 Rhabdomyolysis; I50.30 Unspecified diastolic (congestive) heart failure; J44.1 Chronic obstructive pulmonary disease with (acute) exacerbation; F17.210 Nicotine dependence, cigarettes, uncomplicated; Z86.11 Personal history of tuberculosis; K80.80 Other cholelithiasis without obstruction; J84.10 Pulmonary fibrosis, unspecified; R79.89 Other specified abnormal findings of blood chemistry; I11.0 Hypertensive heart disease with heart failure
CPT/HCPCS: 36415; 36600; 71046; 71250; 76705; 80048; 80053; 80061; 80076; 81001; 82550; 82553; 82805; 82948; 83036; 83605; 83880; 84132; 84484; 85025; 85610; 85730; 87040; 87070; 87071; 87086; 87116; 87149; 87190; 87205; 87206; 87400; 93005; 93306; 94640; 99284; J0360; J0456; J0696; J2920; J2930; J7030; J7040; J7050; J7512